=== PATIENT | female | born 1965 | race African-American/Black ===

== ENCOUNTER 2024-01-10 17:35 | Emergency (ER) | payer MEDICARE, SELFPAY ==
[2024-01-10 17:37] VITALS: BP 159/91
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
[2024-01-10 18:40] LABS: % Basophils 0.3 % (0-2); % Eosinophils 0.2 % (0-6); % Immature Granulocytes 0.2 % (0-0.5); % Lymphocytes 18.8 % (20.5-51.1); % Monocytes 7.1 % (1.7-9.3); % Neutrophils 73.4 % (42.2-75.2); Absolute Lymphocytes 1.8 10^3/uL (1.2-3.4); Absolute Monocytes 0.7 10^3/uL (0.1-0.6); Hematocrit 40.2 % (37.0-47.0); Mean Corp Hgb Conc. 34.8 g/dL (33.0-37.0); Mean Corpuscular Hgb 30.1 pg (27.0-31.0); Mean Corpuscular Volume 86.5 fL (81.0-99.0); Mean Platelet Volume 10.1 fL (7.4-10.4); Nucleated Red Blood Cells % 0 %; Platelet Count 226 10^3/uL (130-400); Red Blood Cell Count 4.65 10^6/uL (4.20-5.40); Red Cell Dist. Width 13.2 % (11.5-14.5); White Blood Cell Count 9.6 10^3/uL (4.8-10.8)
[2024-01-10 18:52] LABS: ALT (SGPT) 21 U/L (0-35); AST (SGOT) 25 U/L (14-36); Acetaminophen < 10 ug/ml (10-30); Albumin 4.8 g/dl (3.5-5.0); Alkaline Phosphatase 66 U/L (38-126); Blood Urea Nitrogen 11 mg/dl (7-17); Carbon Dioxide 25 mmol/L (22-30); Chloride 103 mmol/L (98-107); Glucose 112 mg/dl (70-99); Potassium 3.8 mmol/L (3.5-5.1); Salicylate < 1.0 mg/dl (2.0-20.0); Sodium 141 mmol/L (135-145); Total Bilirubin 0.3 mg/dl (0.2-1.3); eGFR > 60.00
[2024-01-10 18:53] LABS: Alcohol None Detected
[2024-01-10 19:04] LABS: INR 0.97; PT 13.4 Sec (11.4-14.6)
[2024-01-10 21:15] VITALS: BP 110/88
[2024-01-10] MEDS: REQUIP 1.25 MG PO (22:30)
[2024-01-10] MEDS: SEROQUEL 400 MG PO (22:32)
== END 2024-01-10 23:16 ==
LOC: EMR 17:35
PROVIDERS: EMERGENCY PHYSICIAN Emergency Medicine
DX: T54.92XA Toxic effect of unspecified corrosive substance, intentional self-harm, initial encounter (principal); R10.9 Unspecified abdominal pain; R45.89 Other symptoms and signs involving emotional state; Z91.51 Personal history of suicidal behavior
CPT/HCPCS: 99285; 80053; 80143; 80179; 82077; 85025; 85610; 93005

== ENCOUNTER 2024-02-03 12:52 | Emergency (ER) | payer MEDICARE, SELFPAY ==
[2024-02-03 12:58] VITALS: BP 131/69
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
[2024-02-03] MEDS: NSS 1000 IV (16:33)
[2024-02-03] MEDS: PROTONIX IV 40 MG IV (16:34)
[2024-02-03] MEDS: ZOFRAN 4 MG IV (16:34)
[2024-02-03 16:36] LABS: % Basophils 0.3 % (0-2); % Eosinophils 0.2 % (0-6); % Immature Granulocytes 0.3 % (0-0.5); % Lymphocytes 26.1 % (20.5-51.1); % Monocytes 9.8 % (1.7-9.3); % Neutrophils 63.3 % (42.2-75.2); Absolute Lymphocytes 3.1 10^3/uL (1.2-3.4); Absolute Monocytes 1.2 10^3/uL (0.1-0.6); Absolute Neutrophils 7.5 10^3/uL (1.4-6.5); Hematocrit 39.6 % (37.0-47.0); Hemoglobin 13.4 g/dL (12.0-16.0); Mean Corp Hgb Conc. 33.8 g/dL (33.0-37.0); Mean Corpuscular Hgb 29.8 pg (27.0-31.0); Nucleated Red Blood Cells % 0 %; Platelet Count 233 10^3/uL (130-400); Red Cell Dist. Width 14.1 % (11.5-14.5); White Blood Cell Count 11.8 10^3/uL (4.8-10.8)
[2024-02-03 16:56] LABS: ALT (SGPT) 23 U/L (0-35); AST (SGOT) 29 U/L (14-36); Albumin 4.4 g/dl (3.5-5.0); Alkaline Phosphatase 63 U/L (38-126); Blood Urea Nitrogen 11 mg/dl (7-17); Calcium 9.5 mg/dl (8.4-10.2); Carbon Dioxide 26 mmol/L (22-30); Chloride 104 mmol/L (98-107); Glucose 109 mg/dl (70-99); Magnesium 2.3 mg/dl (1.6-2.3); Potassium 3.8 mmol/L (3.5-5.1); Sodium 137 mmol/L (135-145); Total Bilirubin 0.3 mg/dl (0.2-1.3); Total Protein 7.5 g/dl (6.3-8.2); eGFR > 60.00
[2024-02-03 17:00] LABS: Erythrocyte Sed Rate 18 mm/hour (0-20)
[2024-02-03 17:20] LABS: TSH Reflex To Free T4 2.19 uIU/ml (0.47-4.68)
[2024-02-03 17:24] LABS: Ferritin 35.7 ng/ml (11.1-264.0)
[2024-02-03 17:55] LABS: Folate 8.1 ng/ml (2.76-20); Vitamin B12 749 pg/ml (239-931)
[2024-02-03 19:49] LABS: Urine Albumin Negative (Neg - Trace); Urine Bilirubin Negative (Negative); Urine Character Clear (Clear); Urine Color Yellow; Urine Glucose Negative (Negative); Urine Ketone Negative (Negative); Urine Leukocyte Negative (Negative); Urine Nitrite Negative (Negative); Urine Occult Blood Negative (Negative); Urine Urobilinogen Negative (Neg - 1+)
[2024-02-03 19:58] LABS: Amphetamines Negative (Negative); Barbiturates Negative (Negative); Benzodiazepines Negative (Negative); Buprenorphine Negative (Negative); Cocaine Negative (Negative); Marijuana Negative (Negative); Methadone Negative (Negative); Methamphetamines Negative (Negative); Opiates Negative (Negative); Phencyclidine Negative (Negative); Tricyclic Antidepressants Negative (Negative)
[2024-02-03 20:35] VITALS: BP 131/77
[2024-02-03] MEDS: AMBIEN 5 MG PO (21:22)
== END 2024-02-04 00:35 ==
LOC: EMR 12:52
PROVIDERS: CONSULT PHYSICIAN Psychiatry & Neurology Neurology; EMERGENCY PHYSICIAN Emergency Medicine
DX: R44.0 Auditory hallucinations (principal); R11.2 Nausea with vomiting, unspecified; R25.1 Tremor, unspecified; F43.10 Post-traumatic stress disorder, unspecified; F31.9 Bipolar disorder, unspecified; F20.9 Schizophrenia, unspecified; R01.1 Cardiac murmur, unspecified; F41.9 Anxiety disorder, unspecified; F32.A Depression, unspecified; Z85.3 Personal history of malignant neoplasm of breast; Z91.51 Personal history of suicidal behavior; Z79.899 Other long term (current) drug therapy
CPT/HCPCS: 99285; 96374; 96375; 96361; 70450; 80053; 80306; 81003; 82607; 82728; 82746; 83735; 84443; 85025; 85652